=== PATIENT | female | born 1960 | race Two or more races ===

== ENCOUNTER → 2024-02-11 | Outpatient (CLI) | payer MEDICAID ==
[~2024-02-11] VITALS: Ht 167.6 cm; Wt 82.6 kg
[~2024-02-11] MED LIST: ADENOSINE 69 MG in GIVE UN-DILUTED 0 ML IV ONE; ADENOSINE 90 MG/30 ML INJ IV ONE
== END | disposition home or self-care (01) ==
LOC: Rad HDHVI 12:59
PROVIDERS: ATTEND Internal Medicine Cardiovascular Disease
DX: R00.2 Palpitations (principal); R42 Dizziness and giddiness; I10 Essential (primary) hypertension; R07.89 Other chest pain; E78.00 Pure hypercholesterolemia, unspecified; I49.9 Cardiac arrhythmia, unspecified; R55 Syncope and collapse; Z82.49 Family history of ischemic heart disease and other diseases of the circulatory system
CPT/HCPCS: 78452; 93005; 93306; 96374; 96375; A9500; J0153

== ENCOUNTER → 2024-04-01 | Outpatient (CLI) | payer MEDICAID ==
[~2024-04-01] MED LIST changes: -ADENOSINE 69 MG in GIVE UN-DILUTED 0 ML IV ONE; -ADENOSINE 90 MG/30 ML INJ IV ONE; +AMLO1TAB22 PO; +ATEN50TA PO; +BACL10TA PO; +BUDE1AER4 IN; +FEXO-42 PO; +POM; +RIVA20TA PO; +ROSU10TA16 PO; +TRIA37.586 PO
[2024-04-01 08:42] VITALS: BP 117/74; PULSE 55; RESP 18; O2SAT 98
[2024-04-01 08:50] VITALS: BP 117/74; PULSE 56; RESP 18; O2SAT 98
== END | disposition home or self-care (01) ==
LOC: Rad HDHVI 08:29
PROVIDERS: ATTEND Internal Medicine Cardiovascular Disease
DX: Z01.810 Encounter for preprocedural cardiovascular examination (principal); R00.2 Palpitations; I49.5 Sick sinus syndrome; I48.0 Paroxysmal atrial fibrillation; R94.31 Abnormal electrocardiogram [ECG] [EKG]
CPT/HCPCS: 71046; 93005; G0463

== ENCOUNTER 2024-04-03 07:57 | Day surgery (SDC) | payer MEDICAID ==
[2024-04-01 12:02] LABS: Basophils # (auto) 0.1 10 ^3/uL (0-0.2); Basophils % (auto) 0.7 % (0.0-2.0); Eosinophils # (auto) 0.2 10 ^3/uL (0-0.8); Eosinophils % (auto) 1.8 % (0.0-7.0); Hematocrit 44.2 % (36.0-46.0); Hemoglobin 15.2 g/dL (12.2-16.2); Lymphocytes # (auto) 4.3 10 ^3/uL (0.4-5.4); Lymphocytes % (auto) 42.6 % (10.0-50.0); Mean Corpuscular Hemoglobin 30.1 pg (28.0-32.0); Mean Corpuscular Hgb Conc. 34.3 g/dL (32.0-36.0); Mean Corpuscular Volume 87.7 fL (80.0-100.0); Monocytes # (auto) 0.6 10 ^3/uL (0-1.3); Monocytes % (auto) 5.6 % (0.0-12.0); Neutrophils % (auto) 49.3 % (37.0-80.0); Nucleated Red Blood Cells % 0.1 %; Platelet Count (auto) 318 10^3/uL (140-450); Red Blood Cells 5.04 10^6/uL (4.0-5.20); White Blood Cell 10.1 10^3/uL (4.4-10.8)
[2024-04-01 12:19] LABS: Partial Thromboplastin Time 25.6 SEC (24.5-34.5); Prothrombin Time 10.6 sec (9.3-11.8)
[2024-04-01 12:22] LABS: Chloride 104 mmol/L (98-107); Potassium 4.2 mmol/L (3.5-5.1); Sodium 140 mmol/L (136-145)
[2024-04-01 12:23] LABS: Anion Gap 8 (5-15); Calcium 10.6 mg/dL (8.7-10.4); Carbon Dioxide 28 mmol/L (20-31)
[2024-04-01 12:28] LABS: BUN/Creatinine Ratio 15.9 (10.0-20.0); Blood Urea Nitrogen 27 mg/dL (9-23); Glucose 121 mg/dL (74-106)
[~2024-04-03] VITALS: Ht 167.6 cm; Wt 84.8 kg
[2024-04-03] MEDS ORDERED: MIDAZOLAM HCL 2MG/2ML 2ml VIAL (1mg/ml) ONE (12:41)
[2024-04-03] MEDS ORDERED: VANCOMYCIN 1GM/250ML 200 ML IV ONE (12:41)
[2024-04-03] MEDS ORDERED: VANCOMYCIN HCL 1000 MG VL ONE (12:41)
[2024-04-03] MEDS ORDERED: fentaNYL CITRATE 100 MCG/2 ML VL ONE (12:41)
[2024-04-03] MEDS ORDERED: LIDOCAINE 2%HCL (LOCAL ANESTH.) INJ 20ML MDV ONE (12:41)
[2024-04-03] MEDS: HYDROcodone-ACET 5/325MG TAB PO ONE (15:44)
[2024-04-03] MEDS: HYDROcodone-ACET 5/325MG TAB ONE (15:46)
== END 2024-04-03 15:55 | disposition home or self-care (01) ==
LOC: CATH 07:57
PROVIDERS: ATTEND Internal Medicine Cardiovascular Disease
DX: I49.5 Sick sinus syndrome (principal); I44.30 Unspecified atrioventricular block; I10 Essential (primary) hypertension; R55 Syncope and collapse; Z79.899 Other long term (current) drug therapy; R07.89 Other chest pain; R06.09 Other forms of dyspnea; Z87.891 Personal history of nicotine dependence; Z88.2 Allergy status to sulfonamides; Z98.890 Other specified postprocedural states
CPT/HCPCS: 33208; 36415; 71045; 80048; 85025; 85610; 85730; 93005; C1785; C1898; J2250; J3010; J3370; 99152

== ENCOUNTER → 2024-04-09 | Outpatient (CLI) | payer MEDICAID | END | disposition home or self-care (01) | LOC: Rad HDHVI 14:07 | PROVIDERS: ATTEND Internal Medicine Cardiovascular Disease | DX: R06.02 Shortness of breath (principal) | CPT/HCPCS: 71046 ==

== ENCOUNTER 2024-05-20 15:45 | Inpatient (IN) | payer MEDICAID ==
[~2024-05-20] VITALS: Ht 167.6 cm; Wt 83.2 kg
[~2024-05-20 15:45] MED LIST changes: +ALBU108A5 IN; +AMLO1TAB23 PO; +POTA-228 PO; +TIOTCAP IN; +TRIA75TA11 PO
--- NOTE | 2024-05-20 15:55 | ED.PDOC ---
HPI Comments HPI: Poor Historian. 63-year-old female transferred from [facility] for atrial fibrillation and possible sepsis. 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 Patient had a pacemaker placed approximately 6-8 weeks ago and had it adjusted a week ago. Since the adjustment, patient has been complaining of generalized weakness and some palpitations. She went to the hospital today and was found with AFib with RVR. While she was at the facility there she received diltiazem IV and oral. She also received some fluids. Her BNP was elevated greater than 1000 and her lactic acid was slightly elevated at 2.3. Patient is on Xarelto. Patient was given Rocephin and blood cultures were obtained. Patient has some mild associated shortness of breath and some palpitations and some subjective fever per ER doctor at the outside facility. Patient also had a chest x-ray that was unremarkable and urinalysis was pending at the time of my discussion with the ER doctor at the outside facility. Troponin was negative. Magnesium was normal, COVID and influenza swabs were n egative. Earlier I discussed the case with Dr. 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 Vital signs on arrival to our ED: Vitals: temp: 98.3 RR: 18 02 sat: 96 % RA heart rate: 116 BP: 100/58 Past Medical History: Atrial fibrillation, gastritis, heart disease, hyperl ipidemia, hypertension, Past Surgical History: Pacemaker Medications include amlodipine, atenolol, baclofen, rosuvastatin, Spiriva, hydrochlorothiazide, Xarelto. REVIEW OF SYSTEMS: CONSTITUTIONAL: Denies acute: fever, diaphoresis, chills, HEAD: Denies acute: headache, photophobia Eyes: Denies acute: Double vision, vision loss, eye pain, eye discharge. EARS: Denies acute: tinnitus, hearing loss, ear discharge, ear pain, THROAT: Denies acute: sore throat, swelling, difficulty swallowing , pain with swallowing, change in voice. NECK: Denies acute: neck pain, neck swelling, stiff neck. HEART: Denies acute : chest pain, LUNGS: Denies acute: wheezing, cough, hemoptysis ABDOMEN: Denies acute: abdominal pain, Nausea, Vomiting, diarrhea, melena , hematemesis, hematochezia SKIN: Denies acute: rash, redness, lesions, itchiness. EXTREMITIES: Denies acute: calf pain, numbness, tingling, weakness, denies pain in extremity. Denies acute: Low back pain. Neuro: Denies acute: focal neurological deficit, motor or sensory focal neurological deficit, tremors, seizure like activity, confusion, dizziness, change in mental status, loss of bowel or bladder function, cauda equina like symptoms. : Denies acute: dysuria, hematuria, flank pain, increase in urinary frequency. PSYCH: Denies acute: hallucination, suicidal ideation, homicidal ideation. FEMALE: Denies acute: abnormal vaginal bleeding, foul odor, unusual discharge. PHYSICAL EXAM: General: no acute distress, awake and alert. Head: normocephalic, atraumatic. Neck: supple, trachea is midline, no swelling. Throat: Normal phonation. Eyes:, no erythema, no purulent discharge, no proptosis, no icterus. Heart: regular rate, regular rhythm, no significant murmur appreciated. Lungs: no apparent respiratory distress, Able to speak in full sentences. No wheezing, no rhonchi, no crackles. No stridors Clear to auscultation bilaterally. Abdomen: non tender to palpation, non distended, soft, no guarding, no rebound, + bowel sounds. Neuro: Awake, Alert, oriented to name, self, situation, follows commands GCS=15. Speech is normal. Skin: no petechia, no purpura, no cyanosis, non-pale, not jaundice. Lower extremities: --no - Pitting edema no deformity, no focal swelling, no calf TTP. Makes eye contact. moves all four extremities. Face: no apparent facial droop. Time Seen by MD: 15:46 Reviewed Notes: Nurses Notes, Allergies Allergies: Coded Allergies: Sulfa Antibiotics (Verified Allergy, Unknown, 02/11/24) Home Meds Reported Medications Rivaroxaban (XARELTO) 20 Mg Tab, 1 TAB PO DAILY for A.FIB, #30 TAB 11 Refills 04/01/24 Hydrochlorothiazide W/Triamter (Triamterene/Hydrochloroth) 1 Cap Cap, 1 CAP PO DAILY for EDEMA, CAP 04/01/24 Baclofen (Baclofen) 10 Mg Tab, 10 MG PO DAILY PRN for FOR MUSCLE SPASM, MG 04/01/24 Patients Own Medication (PATIENTS OWN MEDICATION) ., PRN for ALBUTEROL PTS OWN MED-OBTAIN FROM PT AND SEND TO RX DRUG: FREQ: RX# EXP: DATE DISP: TECH: RP: 04/01/24 Patients Own Medication (PATIENTS OWN MEDICATION) ., DAILY for ALLER-RITA PTS OWN MED-OBTAIN FROM PT AND SEND TO RX DRUG: FREQ: RX# EXP: DATE DISP: TECH: RP: 04/01/24 Patients Own Medication (PATIENTS OWN MEDICATION) ., DAILY for SPIRIVA/COPD PTS OWN MED-OBTAIN FROM PT AND SEND TO RX DRUG: FREQ: RX# EXP: DATE DISP: TECH: RP: 04/01/24 Budesonide-Formoterol Fumarate (Budesonide/Formoterol Fum 160-4.5 Mcg/Act) 1 Aer Aer, 1 AER IN DAILY for COPD, AER 04/01/24 Fexofenadine Hydrochloride (EDWARD ALLERGY) 180 Mg Tab, 1 TAB PO DAILY for ALLERGIES, #30 TAB 2 Refills 04/01/24 Rosuvastatin Calcium (Crestor) 10 Mg Tab, 1 TAB PO DAILY for HIGH CHOLESTEROL, #30 TAB 5 Refills 04/01/24 Amlodipine Besylate (Amlodipine Besylate) 5 Mg Tab, 10 MG PO DAILY for HTN, MG 04/01/24 Atenolol (Atenolol) 50 Mg Tab, 50 MG PO DAILY for ARRHYTHMIA, MG 04/01/24 Information Source: Patient, Emergency Med Personnel Mode of Arrival: EMS Brought in by: EMS Was a procedure done? Was a procedure done?: No CP Differential Dx Differential Diagnosis: A-fib, A-Flutter, Angina, Anxiety / Panic Attack, Atrial Dysrhythmia, AV Block 1st Degree, AV Block 2nd Degree, AV Block 3rd Degree, Digoxin Toxicity, Electrolyte Disorder, Heart Failure, Hyperthyroidism, Hyperventilation, Hypoxia, MAT, DE, PAC's, Pacemaker Malfunction, PSVT, Pulmonary Embolus, PVC's, Renal Failure, Sinus Tachycardia, Torsades De Pointes, Ventricular Dysrhythmia, V-Fib, V-Tach, WPW, Other Differential Diagnosis: Other (Generalized weakness Includes but not limited to thyroid disease, encephalopathy, electrolyte abnormality, sepsis, infection, intracranial pathology, drug adverse effects, arrhythmia, kidney insufficiency, ACS, CVA, malignancy, anemia) X-Ray, Labs, Meds, VS Vital Signs Date Time Temp Pulse Resp B/P (MAP) Pulse Ox O2 Delivery O2 Flow Rate FiO2 05/20/24 20:00 92/39 05/20/24 20:00 95 05/20/24 19:39 105 24 97 Room Air* 0 21 05/20/24 19:39 98.2 105 24 108/57 (74) 97 98.2 05/20/24 19:14 123/74 05/20/24 18:00 93 20 116/51 (72) 94 05/20/24 16:08 85 21 96 Room Air* 0 21 05/20/24 16:08 98.3 85 21 115/54 (74) 96 98.3 05/20/24 16:03 89 05/20/24 15:47 114 05/20/24 15:47 114 05/20/24 15:45 98.3 116 18 100/58 (72) 96 Lab Test 05/20/24 19:17 05/20/24 17:40 05/20/24 16:15 Range/Units Troponin I High Sensitivity 7 5 6 </=34 ng/L White Blood Count 8.6 4.4-10.8 10^3/uL Red Blood Count 4.24 4.0-5.20 10^6/uL Hemoglobin 12.7 12.2-16.2 g/dL Hematocrit 37.7 36.0-46.0 % Mean Corpuscular Volume 88.7 80.0-100.0 fL Mean Corpuscular Hemoglobin 29.9 28.0-32.0 pg Mean Corpuscular Hemoglobin Concent 33.7 32.0-36.0 g/dL Red Cell Distribution Width 14.3 11.8-14.3 % Platelet Count 289 140-450 10^3/uL Mean Platelet Volume 7.5 6.9-10.8 fL Neutrophils (%) (Auto) 55.6 37.0-80.0 % Lymphocytes (%) (Auto) 34.4 10.0-50.0 % Monocytes (%) (Auto) 8.9 0.0-12.0 % Eosinophils (%) (Auto) 0.5 0.0-7.0 % Basophils (%) (Auto) 0.6 0.0-2.0 % Neutrophils # (Auto) 4.8 1.6-8.6 10 ^3/uL Lymphocytes # (Auto) 3.0 0.4-5.4 10 ^3/uL Monocytes # (Auto) 0.8 0-1.3 10 ^3/uL Eosinophils # (Auto) 0 0-0.8 10 ^3/uL Basophils # (Auto) 0.1 0-0.2 10 ^3/uL Nucleated Red Blood Cells 0.1 % Sodium Level 136 136-145 mmol/L Potassium Level 3.6 3.5-5.1 mmol/L Chloride Level 103 98-107 mmol/L Carbon Dioxide Level 23 20-31 mmol/L Anion Gap 10 5-15 Blood Urea Nitrogen 22 9-23 mg/dL Creatinine 1.19 H 0.550-1.02 mg/dL Glomerular Filtration Rate Calc 51 >90 mL/min BUN/Creatinine Ratio 18.5 10.0-20.0 Serum Glucose 114 H 74-106 mg/dL Lactic Acid Level 1.4 0.4-2.0 mmol/L Calcium Level 9.3 8.7-10.4 mg/dL Total Bilirubin 0.7 0.2-1.0 mg/dL Aspartate Amino Transferase (AST) 14 13-40 U/L Alanine Aminotransferase (ALT) 13 7-40 U/L Alkaline Phosphatase 54 46-116 U/L B-Type Natriuretic Peptide 132.13 0-100 pg/mL Total Protein 6.7 5.7-8.2 g/dL Albumin 4.1 3.2-4.8 g/dL Current Medications Medications (Trade) Dose Ordered Sig/Kitty Route Start Time Stop Time Status Last Admin Diltiazem HCl 125 ml @ 5 mls/hr Q24H ONCE IV 05/20/24 19:00 05/21/24 18:59 05/20/24 19:14 Time of 1ST Reevaluation: 21:33 Reevaluation 1ST: Improved Patient Education/Counseling: Diagnosis, Treatment Family Education/Counseling: No Family Present Comments Patient presented with the above HPI.---atrial fibrillation with RVR/generalized weakness---workup was initiated. patient was found with the above mentioned diagnosis. Patient was given: Diltiazem drip Patient ED course and VS have been stabilized. Patient has been reassessed in the ED and remained in a stable condition. Pertinent incidental findings were discussed with the patient and/or family. Patient/family voices understanding and is agreeable with plan. Patient has been observed in the ED adequate length of time to insure improvement/stability. patient was admitted to the medicine team for further evaluation and treatment of their presentation. All the reports of any imaging studies that were ordered by myself were reviewed by myself. Departure 1 Departure Time of Disposition: 15:57 Impression: Primary Impression: Atrial fibrillation with RVR Disposition: ADMITTED INPATIENT Admit to: Tele Condition: Guarded Discharged With: Self Critical Care Note Critical Care Time?: Yes (45 min-critical care time only) Heart Score Heart Score: Heart Score Response (Comments) Value History Slightly Suspicious 0 EKG Normal 0 Age 45-64 1 Risk Factors >3 or Hx ASHD 2 Troponin Normal limit 0 Total 3 I personally scribed for SWEETIE TRUONG DO ([email or web address]) on 05/20/24 at 16:19. Electronically submitted by Becca Hernandez ([email or web address]). SWEETIE TRUONG DO May 20, 2024 15:55
[2024-05-20 16:08] VITALS: PULSE 85; RESP 21; O2SAT 96
--- NOTE | 2024-05-20 16:21 | DVH ---
CHEST RADIOGRAPH Indication: weak Technique: Single frontal view of the chest was obtained Comparison: XY CHEST PORTABLE on DOS: 04/03/24 FINDINGS: Lines and Tubes: None. Left-sided approach dual lead pacemaker terminating within right atrium and r ight ventricle. Lungs: No focal consolidation. Pleura: No effusion. No pneumothorax. Cardiomediastinal contours: Mild cardiomegaly Bones: No acute osseous abnormality. IMPRESSION: No acute cardiopulmonary disease. Mild cardiomegaly.
[2024-05-20 16:33] LABS: Basophils # (auto) 0.1 10 ^3/uL (0-0.2); Basophils % (auto) 0.6 % (0.0-2.0); Eosinophils # (auto) 0 10 ^3/uL (0-0.8); Eosinophils % (auto) 0.5 % (0.0-7.0); Hematocrit 37.7 % (36.0-46.0); Hemoglobin 12.7 g/dL (12.2-16.2); Lymphocytes % (auto) 34.4 % (10.0-50.0); Mean Corpuscular Hemoglobin 29.9 pg (28.0-32.0); Mean Corpuscular Hgb Conc. 33.7 g/dL (32.0-36.0); Mean Corpuscular Volume 88.7 fL (80.0-100.0); Monocytes # (auto) 0.8 10 ^3/uL (0-1.3); Monocytes % (auto) 8.9 % (0.0-12.0); Neutrophils # (auto) 4.8 10 ^3/uL (1.6-8.6); Neutrophils % (auto) 55.6 % (37.0-80.0); Nucleated Red Blood Cells % 0.1 %; Platelet Count (auto) 289 10^3/uL (140-450); Red Blood Cells 4.24 10^6/uL (4.0-5.20); Red Cell Distribution Width 14.3 % (11.8-14.3); White Blood Cell 8.6 10^3/uL (4.4-10.8)
[2024-05-20 16:55] LABS: Alanine Aminotransferase 13 U/L (7-40); Albumin 4.1 g/dL (3.2-4.8); Alkaline Phosphatase 54 U/L (46-116); Anion Gap 10 (5-15); Aspartate Aminotransferase 14 U/L (13-40); BUN/Creatinine Ratio 18.5 (10.0-20.0); Bilirubin, Total 0.7 mg/dL (0.2-1.0); Blood Urea Nitrogen 22 mg/dL (9-23); Calcium 9.3 mg/dL (8.7-10.4); Carbon Dioxide 23 mmol/L (20-31); Chloride 103 mmol/L (98-107); Glucose 114 mg/dL (74-106); Potassium 3.6 mmol/L (3.5-5.1); Sodium 136 mmol/L (136-145); Total Protein 6.7 g/dL (5.7-8.2)
[2024-05-20] MEDS: dilTIAZem 125mg/125ml BAG KIT 125 ML IV ONE (19:14)
[2024-05-20 19:39] VITALS: PULSE 105; RESP 24; O2SAT 97
[2024-05-20] MEDS ORDERED: ACETAMINOPHEN 325 MG TAB PO PRN (21:00)
[2024-05-20] MEDS ORDERED: NITROGLYCERIN 0.4 MG SL TAB SL PRN (21:00)
[2024-05-20] MEDS ORDERED: MORPHINE SULFATE INJ 2 MG/ml SYRG IV PRN ×2 (21:00)
[2024-05-20] MEDS: ENOXAPARIN SOD 40 MG/0.4 ML SYRINGE SC SCH (21:20)
[2024-05-20] MEDS: SODIUM CHLORIDE 0.9% 1,000 ML IV SCH (21:20)
[2024-05-20] MEDS: MELATONIN 5 MG TAB PO ONE (22:00)
[2024-05-21] VITALS (8 sets, daily range): BP systolic 96–138; BP diastolic 36–75; PULSE 62–109; RESP 15–21; TEMP 98.7; O2SAT 93–97
[2024-05-21] MEDS: DIGOXIN (250MCG/ML) 2 ML AMPULE IV ONE (00:39)
--- NOTE | 2024-05-21 01:56 | DVHHPRES ---
History of Present Illness Resident Creating Document: CHITRA FIGUEROA RESIDENT Reason for Visit: Generalized weakness, palpitation and insomnia for 8 days. History of Present Illness 63-year-old female patient with past medical history of hypertension, hyperlipidemia, atrial fibrillation with rapid ventricular response, sick sinus syndrome status post dual-chamber pacemaker implantation 2 months ago, and COPD with nicotine dependency presented with generalized weakness palpitations and insomnia over the last 8 days. The patient reports severe fatigue that has left her mostly bed-bound, unable to ambulate or perform daily activities. She has been eating minimal amounts, limited to small amounts of fruit. The palpitations are intermittent described as an regular and rapid heartbeat, without associated chest pain dizziness or syncope. She denies fever recent weight loss, or other constitutional symptoms. Insomnia persists despite the use of melatonin. She was recently started on diltiazem and ceftriaxone during this admission, diltiazem was discontinued and digoxin 0.1 mg IV was initiated to control her atrial fibrillation. Past Medical History Atrial fibrillation rapid ventricular response Sick sinus syndrome status post dual-chamber pacemaker implanted 2 months ago Hypertension Hyperlipidemia COPD Nicotine dependency Past Surgical History Apple tunnel surgery Cholecystectomy Dual-chamber pacemaker implantation Family History: None Smoke: No ALCOHOL: none Drugs: None Lives: Alone Review of Systems Review of Systems Constitutional: Weakness, frailty. Denies fever weight loss Eyes: No: Pain, Vision change, Conjunctivae inflammation, Eyelid inflammation, Other, Redness ENT: No: Ear pain, Ear discharge, Nose pain, Nose discharge, Nose congestion, Mouth pain, Mouth swelling, Throat pain, Throat swelling, Other Respiratory: Cough present, Shortness of breath, improving No Wheezing, Hemoptysis, Pleuritic Pain, Sputum, Wheezing, Other Cardiovascular: Palpitation, denies chest pain edema cyanosis or claudication. Gastrointestinal: No: Nausea, Vomiting, Abdominal Pain, Diarrhea, Constipation, Melena, Hematochezia, Other Musculoskeletal: No: other, neck pain, shoulder pain, arm pain, back pain, hand pain, leg pain, foot pain Neurological: Insomnia, no reported depression or anxiety Allergies: Coded Allergies: Sulfa Antibiotics (Verified Allergy, Unknown, 02/11/24) Medications Current Medications Medications Dose Ordered Sig/Kitty Route Start Time Stop Time Status Last Admin Dose Admin Sodium Chloride 1,000 ml @ 60 mls/hr [id number] IV 05/20/24 21:00 05/20/24 21:20 60 MLS/HR Acetaminophen 650 mg Q6HP PRN PO 05/20/24 21:00 Morphine Sulfate 2 mg Q4HPRN PRN IV 05/20/24 21:00 Enoxaparin Sodium 40 mg DAILY@2100 SC 05/20/24 21:00 05/20/24 21:20 40 MG Nitroglycerin 0.4 mg Q5MINP PRN SL 05/20/24 21:00 Morphine Sulfate 2 mg Q30M PRN IV 05/20/24 21:00 Digoxin 100 mcg DAILY IV 05/21/24 10:00 Exam Vital Signs Vital Signs Date Time Temp Pulse Resp B/P (MAP) Pulse Ox O2 Delivery O2 Flow Rate FiO2 05/21/24 00:39 89 05/20/24 23:00 100/52 05/20/24 22:30 20 91 05/20/24 19:39 Room Air* 0 21 05/20/24 19:39 98.2 98.2 Exam Examination General Appearance: Alert, Oriented X3, Cooperative, frail but well nourished Vital signs: Heart rate 110-150 beats per minute, irregularly irregular BP: 108/57 mmHg low-normal Afebrile Respiratory: Clear to auscultation, Normal air movement Cardiovascular: Irregularly irregular rhythm (atrial fibrillation), no murmurs no rubs or gallops, capillary refill less than 2 seconds Abdominal: Normal bowel sounds Extremities: No cyanosis, No edema, Normal pulses, No tenderness/swelling Skin: No rashes, No breakdown Labs/Xrays Labs Test 05/20/24 19:17 05/20/24 16:15 Range/Units Troponin I High Sensitivity 7 </=34 ng/L White Blood Count 8.6 4.4-10.8 10^3/uL Red Blood Count 4.24 4.0-5.20 10^6/uL Hemoglobin 12.7 12.2-16.2 g/dL Hematocrit 37.7 36.0-46.0 % Mean Corpuscular Volume 88.7 80.0-100.0 fL Mean Corpuscular Hemoglobin 29.9 28.0-32.0 pg Mean Corpuscular Hemoglobin Concent 33.7 32.0-36.0 g/dL Red Cell Distribution Width 14.3 11.8-14.3 % Platelet Count 289 140-450 10^3/uL Mean Platelet Volume 7.5 6.9-10.8 fL Neutrophils (%) (Auto) 55.6 37.0-80.0 % Lymphocytes (%) (Auto) 34.4 10.0-50.0 % Monocytes (%) (Auto) 8.9 0.0-12.0 % Eosinophils (%) (Auto) 0.5 0.0-7.0 % Basophils (%) (Auto) 0.6 0.0-2.0 % Neutrophils # (Auto) 4.8 1.6-8.6 10 ^3/uL Lymphocytes # (Auto) 3.0 0.4-5.4 10 ^3/uL Monocytes # (Auto) 0.8 0-1.3 10 ^3/uL Eosinophils # (Auto) 0 0-0.8 10 ^3/uL Basophils # (Auto) 0.1 0-0.2 10 ^3/uL Nucleated Red Blood Cells 0.1 % Sodium Level 136 136-145 mmol/L Potassium Level 3.6 3.5-5.1 mmol/L Chloride Level 103 98-107 mmol/L Carbon Dioxide Level 23 20-31 mmol/L Anion Gap 10 5-15 Blood Urea Nitrogen 22 9-23 mg/dL Creatinine 1.19 H 0.550-1.02 mg/dL Glomerular Filtration Rate Calc 51 >90 mL/min BUN/Creatinine Ratio 18.5 10.0-20.0 Serum Glucose 114 H 74-106 mg/dL Lactic Acid Level 1.4 0.4-2.0 mmol/L Calcium Level 9.3 8.7-10.4 mg/dL Total Bilirubin 0.7 0.2-1.0 mg/dL Aspartate Amino Transferase (AST) 14 13-40 U/L Alanine Aminotransferase (ALT) 13 7-40 U/L Alkaline Phosphatase 54 46-116 U/L B-Type Natriuretic Peptide 132.13 0-100 pg/mL Total Protein 6.7 5.7-8.2 g/dL Albumin 4.1 3.2-4.8 g/dL Assessment/Plan Assessment/Plan Atrial Fibrillation with rapid ventricular response, CHADSVASC 2 points HASBLED 1 POINT -diltiazem was discontinued -Digoxin 0.1 mg IV -check digoxin level after 6 hours to ensure therapeutic range -Consider beta-kory therapy -consider DOAC if not contraindication to prevent thromboembolic event -consider pacemaker interrogation Generalized weakness -physical therapy evaluation for strength and mobility improvement History of Nicotine dependency, quit 1 year ago Encouraged continue with smoking cessation Mild hypotension -monitor Sick sinus syndrome status post pacemaker implantation -consider pacemaker interrogation -follow-up with ultrasonographer Insomnia -melatonin Disposition: Admit to telemetry for monitoring of heart rate and rhythm Case discussed with Dr. Paz Discharge planning discussed with the patient for 38 minutes Code status: Full code Plan discussed with: Patient My Orders Orders - CHITRA FIGUEROA RESIDENT Procedure Category Date Status Time Admit ADMIT 05/20/24 Transmitted 20:46 Allergies MARICEL 05/20/24 In Process 20:46 Code Status CODE 05/20/24 Transmitted 20:46 2 Gm Sodium Diet DIET 05/21/24 Transmitted Breakfast Sodium Chloride 0.9% PHA 05/20/24 In Process 21:00 Oxygen Per Hour RT 05/20/24 Transmitted 20:46 Complete Blood Count LAB 05/21/24 Logged 04:00 Comprehensive LAB 05/21/24 Logged Metabolic Panel 04:00 Cardiac DIET 05/21/24 Transmitted Diet-2gna,Lofat,Lochol Breakfast Echo 2d Mode Cardiac US 05/20/24 Logged DOP 20:46 Acetaminophen Tablet PHA 05/20/24 In Process (Tylenol Tablet) 21:00 Morphine Sulfate PHA 05/20/24 In Process Injection 21:00 Enoxaparin Sodium PHA 05/20/24 In Process (Lovenox) 21:00 Nitroglycerin PHA 05/20/24 In Process Sublingual (Ntrostat 21:00 Morphine Sulfate PHA 05/20/24 In Process Injection 21:00 Oxygen By Nasal RT 05/20/24 Transmitted Cannula 20:46 Stat Ekg For Chest [facility] 05/20/24 In Process Pain 20:46 Notify Md Of Changes [facility] 05/20/24 In Process From Base 20:46 Lining [place] For MARICEL 05/20/24 In Process 24 Hours 20:46 Emergency Dysrhythmia MARICEL 05/20/24 In Process Protocol 20:46 Rhythm Strips Once [facility] 05/20/24 In Process Every Shift 20:46 Digoxin Injection PHA 05/21/24 In Process (Lanoxin Injection) 10:00 Date of Service: May 20, 2024 Billing Provider: HIEN PAZ MD Common Visit Codes: 45000-SXPYMLJ INP/OBS CARE (HIGH) Secondary Visit Codes: 66150-MLQMRHKF CARE PLAN 30 MINUTES CHITRA FIGUEROA May 21, 2024 01:56 HIEN PAZ MD May 21, 2024 09:12
[2024-05-21] MEDS: MELATONIN 5 MG TAB PO ONE (02:00)
[2024-05-21 03:58] LABS: Amphetamine Screen, Urine Neg (NEGATIVE); Barbiturate Scree,Urine Neg (NEGATIVE); Benzodiazephine Screen, Urine Neg (NEGATIVE); Cocaine Screen, Urine Neg (NEGATIVE)
[2024-05-21 03:59] LABS: Cannabinoid Screen, Urine Neg (NEGATIVE); Opiate Scree,Urine Neg (NEGATIVE); Phencyclidine Screen, Urine Neg (NEGATIVE)
[2024-05-21 04:53] LABS: Basophils # (auto) 0 10 ^3/uL (0-0.2); Basophils % (auto) 0.3 % (0.0-2.0); Eosinophils # (auto) 0.1 10 ^3/uL (0-0.8); Eosinophils % (auto) 1.7 % (0.0-7.0); Hematocrit 33.4 % (36.0-46.0); Hemoglobin 11.7 g/dL (12.2-16.2); Lymphocytes # (auto) 3.2 10 ^3/uL (0.4-5.4); Lymphocytes % (auto) 40.2 % (10.0-50.0); Mean Corpuscular Hemoglobin 30.3 pg (28.0-32.0); Mean Corpuscular Hgb Conc. 34.9 g/dL (32.0-36.0); Mean Corpuscular Volume 86.9 fL (80.0-100.0); Monocytes # (auto) 0.5 10 ^3/uL (0-1.3); Monocytes % (auto) 5.9 % (0.0-12.0); Neutrophils # (auto) 4.2 10 ^3/uL (1.6-8.6); Neutrophils % (auto) 51.9 % (37.0-80.0); Platelet Count (auto) 255 10^3/uL (140-450); Red Blood Cells 3.84 10^6/uL (4.0-5.20); White Blood Cell 8.1 10^3/uL (4.4-10.8)
[2024-05-21 05:07] LABS: Alanine Aminotransferase 12 U/L (7-40); Albumin 3.9 g/dL (3.2-4.8); Alkaline Phosphatase 50 U/L (46-116); Anion Gap 10 (5-15); Aspartate Aminotransferase 14 U/L (13-40); BUN/Creatinine Ratio 19.8 (10.0-20.0); Bilirubin, Total 0.6 mg/dL (0.2-1.0); Blood Urea Nitrogen 22 mg/dL (9-23); Calcium 9.2 mg/dL (8.7-10.4); Carbon Dioxide 24 mmol/L (20-31); Chloride 106 mmol/L (98-107); Glucose 99 mg/dL (74-106); Potassium 3.2 mmol/L (3.5-5.1); Sodium 140 mmol/L (136-145)
[2024-05-21 05:08] LABS: Total Protein 6.3 g/dL (5.7-8.2)
[2024-05-21 05:16] LABS: CRP High Sensitivity 7.81 mg/dL (<1.0)
[2024-05-21] MEDS ORDERED: BACLOFEN 10 MG TAB PO PRN (05:30)
[2024-05-21] MEDS: FEXOFENADINE HCL 60 MG TAB PO ONE (05:41)
[2024-05-21] MEDS: ATORVASTATIN 20 MG TAB PO ONE (05:41)
[2024-05-21 05:46] LABS: Erythrocyte Sedimentation Rate 85 mm/hr (0-20)
[2024-05-21] MEDS: LEVALBUTEROL HCL 1.25 MG/3 ML NEB NEB SCH (05:49)
[2024-05-21] MEDS: IPRATROPIUM BROM 0.5 MG/2.5ML INH SOL NEB SCH (05:49)
--- NOTE | 2024-05-21 07:12 | DVH ---
EXAM: CT HEAD WITHOUT CONTRAST INDICATION: rule out stroke. TECHNIQUE: CT of the head without intravenous contrast. Coronal and sagittal reformatted images are submitted. Radiation Dose : 1. Head: CT Dose: CTDI volume is 54.14 mGy. Dose-length product is 1067.03 mGy*cm The dose indicators for CT are the volume Computed Tomography (CT) Dose Index (CTDIvol) and the Dose Length Product (DLP), and are measured in units of mGy and mGy-cm, respectively. These indicators are not patient dose, but values generated from the CT scanner acquisition factors. The report includes radiation exposure data for exposures received during this examination. All CT scans at this medical facility are performed using dose modulation techniques as appropriate to a performed exam including the following: Automated exposure control was utilized; adjustment of the MA and/or KV according to patient size; and use of iterative reconstruction technique. COMPARISON: None FINDINGS: There is no evidence of acute intracranial hemorrhage, extra-axial collection, mass effect, midline s hift, herniation or hydrocephalus. The ventricles, sulci and cisterns are age appropriate. The menon-white differentiation is intact. The visualized paranasal sinuses and mastoid air cells are clear. No depressed calvarial fracture. The surrounding soft tissues are unremarkable. IMPRESSION: 1. No evidence of acute intracranial abnormality.
--- NOTE | 2024-05-21 08:10 | DVHPN2 ---
Progress Note - Dictate Date Seen: May 21, 2024 Medical Necessity Reason Pt with a Central, PICC or Fol: No Subjective PT WITH COPD TOBACCO USE NOW WITH SSS S/P PPI HX OF AFIB WITH RVR HYPOTENSION vital signs Vital Sign Date Time Temp Pulse Resp B/P (MAP) Pulse Ox O2 Delivery O2 Flow Rate FiO2 05/21/24 07:24 96 15 96/36 97 1.0 24 05/21/24 05:49 Nasal Cannula* 05/20/24 19:39 98.2 98.2 Total Intake and Output 05/20/24 05/20/24 05/21/24 15:00 23:00 07:00 Intake Total 140 ml 420 ml Balance 140 ml 420 ml medications Current Medications Medications Dose Ordered Sig/Kitty Route Start Time Stop Time Status Last Admin Dose Admin Sodium Chloride 1,000 ml @ 60 mls/hr [id number] IV 05/20/24 21:00 05/20/24 21:20 60 MLS/HR Acetaminophen 650 mg Q6HP PRN PO 05/20/24 21:00 Morphine Sulfate 2 mg Q4HPRN PRN IV 05/20/24 21:00 Nitroglycerin 0.4 mg Q5MINP PRN SL 05/20/24 21:00 Morphine Sulfate 2 mg Q30M PRN IV 05/20/24 21:00 Aspirin 81 mg DAILY PO 05/21/24 10:00 Baclofen 10 mg DAILY PRN PO 05/21/24 05:30 Ipratropium [place] 0.5 mg Q6HWA NEB 05/21/24 06:00 05/21/24 05:49 0.5 MG Levalbuterol HCl 0.625 mg Q6HR NEB 05/21/24 06:00 05/21/24 05:49 0.625 MG Rivaroxaban 20 mg QPM PO 05/21/24 18:00 UNV Metoprolol Succinate 25 mg DAILY PO 05/21/24 10:00 UNV laboratory and microbiology Laboratory Tests 05/21/24 04:04 Test 05/21/24 04:04 Range/Units Serum Glucose 99 74-106 mg/dL Problem List COPD TOBACCO USE NOW WITH SSS S/P PPI HX OF AFIB WITH RVR HYPOTENSION Assessment/Plan CONT TOPROL DIG 0.125 PO QD DC TOBACCO USE Plan discussed with: Patient STEVO RAMOS MD May 21, 2024 08:10
[2024-05-21] MEDS: POTASSIUM EFFERVESENT TAB 25 MEQ PO ONE (09:20)
[2024-05-21] MEDS: METOPROLOL SUCCINATE XL 50 MG TAB PO SCH (10:00)
[2024-05-21] MEDS ORDERED: DIGOXIN (250MCG/ML) 2 ML AMPULE IV SCH (10:00)
[2024-05-21] MEDS: ASPirin 81 mg TAB PO SCH (10:35)
[2024-05-21] MEDS: DIGOXIN 0.125 MG TAB PO SCH (10:35)
--- NOTE | 2024-05-21 14:24 | ECG ---
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
--- NOTE | 2024-05-21 15:27 | DVHPNRES ---
Progress Note Date Seen: May 21, 2024 Resident Creating Document: SUZANNA HUERTA RESIDENT Medical Necessity Reason Pt with a Central, PICC or Fol: No Subjective Review of Systems AUSTINVICKBriseida a 62 years old female with a PMH of HTN, HLD, AFib with RVR, sinus sick syndrome status post dual-chamber pacemaker and COPD presented to the ED with the chief complaints of palpitations, generalized weakness for past 8 days. Patient reported on April 03, Dr. Quintero implanted pacemaker, and May 13 the mid some adjustments since then patient has been feeling all these symptoms, feels very weak, hard feels like racing, unable to eat due to lack of appetite and not interested in any thing and unable to perform daily activities mostly staying all the day on the bed due to the weakness which brought her to visit ED. The palpitations are intermittent described as an regular and rapid heartbeat, without associated chest pain dizziness or syncope. She denies fever recent weight loss, or other constitutional symptoms. Insomnia persists despite the use of melatonin. patient does report few episodes of fever but denies abdominal pain, chest pain, diaphoresis and other associated symptoms. PMH: HTN, HLD, AFib with RVR, sinus sick syndrome status post dual-chamber pacemaker and COPD PSH: Dual-chamber replacement on May 13t by Dr quintero, carpal tunnel release surgery, cholecystectomy Family history: Reviewed, noncontributory Social history: Lives alone with a roommate. Denies smoking, alcohol and other drug abuse Allergies: : Sulfa allergy Patient seen and examined at the bedside. Patient reported improvement since admission. Continuously monitoring and telemetry unit, patient found to have AFib with RVR, consulted Dr. Quintero, evaluated the patient and advised to continue metoprolol and digoxin 0.125 p.o. q.d. and ordered Biotronik interrogation. Objective vital signs Vital Sign Date Time Temp Pulse Resp B/P (MAP) Pulse Ox O2 Delivery O2 Flow Rate FiO2 05/21/24 12:06 70 16 95 05/21/24 12:00 Room Air 0.0 05/21/24 12:00 21 05/21/24 07:24 96/36 05/20/24 19:39 98.2 98.2 Total Intake and Output 05/20/24 05/20/24 05/21/24 15:00 23:00 07:00 Intake Total 140 ml 420 ml Balance 140 ml 420 ml medications Current Medications Medications Dose Ordered Sig/Kitty Route Start Time Stop Time Status Last Admin Dose Admin Sodium Chloride 1,000 ml @ 60 mls/hr [id number] IV 05/20/24 21:00 05/21/24 14:01 60 MLS/HR Acetaminophen 650 mg Q6HP PRN PO 05/20/24 21:00 Morphine Sulfate 2 mg Q4HPRN PRN IV 05/20/24 21:00 Nitroglycerin 0.4 mg Q5MINP PRN SL 05/20/24 21:00 Morphine Sulfate 2 mg Q30M PRN IV 05/20/24 21:00 Aspirin 81 mg DAILY PO 05/21/24 10:00 05/21/24 10:35 81 MG Baclofen 10 mg DAILY PRN PO 05/21/24 05:30 Ipratropium [place] 0.5 mg Q6HWA NEB 05/21/24 06:00 05/21/24 12:00 0.5 MG Levalbuterol HCl 0.625 mg Q6HR NEB 05/21/24 06:00 05/21/24 12:00 0.625 MG Rivaroxaban 20 mg QPM PO 05/21/24 18:00 Metoprolol Succinate 25 mg DAILY PO 05/21/24 10:00 Digoxin 0.125 mg DAILY PO 05/21/24 10:00 05/21/24 10:35 0.125 MG Examination Pt is lying on bed General Appearance: Alert, Oriented X3, Cooperative, Not in acute distress HEENT: Atraumatic, Mucous membranes moist/pink Respiratory: Clear to auscultation, Normal air movement, No added sounds Cardiovascular: irregularly irregular pulse, Normal S1, Normal S2, No murmurs Abdominal: Active bowel sounds, Soft, no distention, no tenderness Extremities: No edema, Normal pulses, No tenderness/swelling Skin: No Significant rash, except past surgical scars Neuro: Normal speech, sensorimotor deficits none Psych/Mental Status: Mental status NL, Mood NL Nurse was there as sharperone during examination laboratory and microbiology Laboratory Tests 05/21/24 04:04 Test 05/21/24 04:04 Range/Units Serum Glucose 99 74-106 mg/dL Labs and/or images reviewed: Labs reviewed by me, Image(s) reviewed by me Problem List/Assessment/Plan Problem List/Assessment/Plan # Atrial Fibrillation with rapid ventricular response secondary hypercoagulable state - monitor on telemetry unit -CHADSVASC 2 points HASBLED 1 POINT -diltiazem was discontinued -Digoxin 0.1 mg IV given -check digoxin level after 6 hours to ensure therapeutic range -currently on metoprolol 25 mg -consider pacemaker interrogation -Dr. Quintero evaluated the patient and advised to continue metoprolol and digoxin 0.125 p.o. q.d. - continue home meds Xarelto # Generalized weakness -physical therapy evaluation for strength and mobility improvement - head CT showed with no acute abnormalities # rule out OTTO -monitor lab for now # History of Nicotine dependency, quit 1 year ago Encouraged continue with smoking cessation # Mild hypotension -monitor # Sick sinus syndrome status post pacemaker implantation -consider pacemaker interrogation -follow-up with tafe teacher # Insomnia -melatonin On Xarelto No Protonix needed Reconciled home meds Cardiac diet Goals of care discussed with the patient for more than 27 minutes: Full code status Case management discussed with the doctor, patient and nurse Plan discussed with: Patient My Orders My Orders Orders - SUZANNA HUERTA RESIDENT Procedure Category Date Status Time Metoprolol Xl PHA 05/21/24 In Process Succinate (Toprol Xl) 10:00 Date of Service: May 21, 2024 Billing Provider: PIERO DARLING MD Common Visit Codes: [id number] INP/OBS CARE(HIGH) Coding Comment Comment Attending Attestation I saw and evaluated the patient. I reviewed the residents note and agree with findings and plan as documented in the residents note except as documented below. Patient with concern of recent pacemaker setting changes. However on telemetry and EKG, patient is in aflutter on baseline with occasional paced rhythm only. DIscussed with patient regarding her current problem is unlikely from the pacemaker. Patient will need pulm as outpatient for eval of sleep apnea SUZANNA HUERTA RESIDENT May 21, 2024 15:26 PIERO DARLING MD May 21, 2024 20:58
[2024-05-21] MEDS: RIVAROXABAN 20 MG TAB PO SCH (18:37)
[2024-05-22] VITALS (15 sets, daily range): BP systolic 90–128; BP diastolic 44–60; PULSE 63–136; RESP 16–19; TEMP 98.2–99.1; O2SAT 93–100
[2024-05-22 05:20] LABS: Chloride 106 mmol/L (98-107); Potassium 3.5 mmol/L (3.5-5.1); Sodium 142 mmol/L (136-145)
[2024-05-22 05:21] LABS: Anion Gap 9 (5-15); Carbon Dioxide 27 mmol/L (20-31)
[2024-05-22 05:22] LABS: Calcium 9.6 mg/dL (8.7-10.4)
[2024-05-22 05:26] LABS: BUN/Creatinine Ratio 18.4 (10.0-20.0); Blood Urea Nitrogen 16 mg/dL (9-23); Glucose 106 mg/dL (74-106)
[2024-05-22 08:05] LABS: Urine Bacteria None Seen /hpf (None Seen)
[2024-05-22 08:20] LABS: Urine Blood Negative /uL (Negative); Urine Clarity Clear (Clear); Urine Color Light-Yellow (Yellow); Urine Protein, UAD Negative (Negative); Urine Specific Gravity 1.009 (1.001-1.035); Urine Urobilinogen Normal (Negative); Urine WBC 1 /hpf (0 - 5)
--- NOTE | 2024-05-22 09:36 | DVHPN2 ---
Progress Note - Dictate Date Seen: May 22, 2024 Medical Necessity Reason Pt with a Central, PICC or Fol: No Subjective PT WITH COPD TOBACCO USE NOW WITH SSS S/P PPI HX OF AFIB WITH RVR HYPOTENSION vital signs Vital Sign Date Time Temp Pulse Resp B/P (MAP) Pulse Ox O2 Delivery O2 Flow Rate FiO2 05/22/24 09:00 99.1 93 18 114/48 (70) 93 99.1 05/22/24 08:11 Room Air* 0 21 medications Current Medications Medications Dose Ordered Sig/Kitty Route Start Time Stop Time Status Last Admin Dose Admin Sodium Chloride 1,000 ml @ 60 mls/hr [id number] IV 05/20/24 21:00 05/22/24 07:25 60 MLS/HR Acetaminophen 650 mg Q6HP PRN PO 05/20/24 21:00 Morphine Sulfate 2 mg Q4HPRN PRN IV 05/20/24 21:00 Nitroglycerin 0.4 mg Q5MINP PRN SL 05/20/24 21:00 Morphine Sulfate 2 mg Q30M PRN IV 05/20/24 21:00 Aspirin 81 mg DAILY PO 05/21/24 10:00 05/22/24 08:06 81 MG Baclofen 10 mg DAILY PRN PO 05/21/24 05:30 Ipratropium [place] 0.5 mg Q6HWA NEB 05/21/24 06:00 05/22/24 05:56 0.5 MG Levalbuterol HCl 0.625 mg Q6HR NEB 05/21/24 06:00 05/22/24 05:57 0.625 MG Rivaroxaban 20 mg QPM PO 05/21/24 18:00 05/21/24 18:37 20 MG Metoprolol Succinate 25 mg DAILY PO 05/21/24 10:00 Digoxin 0.125 mg DAILY PO 05/21/24 10:00 05/22/24 08:06 0.125 MG laboratory and microbiology Laboratory Tests 05/22/24 04:47 05/21/24 04:04 Test 05/22/24 04:47 Range/Units Serum Glucose 106 74-106 mg/dL Problem List COPD TOBACCO USE NOW WITH SSS S/P PPI HX OF AFIB WITH RVR HYPOTENSION Assessment/Plan CONT TOPROL DIG 0.125 PO QD DC TOBACCO USE PACEMAKER INTERROGATION SHOWS NL PPI FUNCTION BUT FREQUENT AFIB RVR START SOTALOL DC METOPROLOL MAG Plan discussed with: Patient STEVO RAMOS MD May 22, 2024 09:36
[2024-05-22] MEDS: MAGNESIUM OXIDE 400 MG TAB PO SCH (13:12)
[2024-05-22] MEDS: SOTALOL HCL 80 MG TAB PO SCH (13:12)
--- NOTE | 2024-05-22 16:29 | DVHPNRES ---
Progress Note Date Seen: May 22, 2024 Resident Creating Document: SUZANNA HUERTA RESIDENT Medical Necessity Reason Pt with a Central, PICC or Fol: No Subjective Review of Systems AUSTINBenji a 62 years old female with a PMH of HTN, HLD, AFib with RVR, sinus sick syndrome status post dual-chamber pacemaker and COPD presented to the ED with the chief complaints of palpitations, generalized weakness for past 8 days. Patient seen and examined at the bedside. Patient reported improvement since admission. Continuously monitoring and telemetry unit, patient found to have AFib with RVR, consulted Dr. Quintero, evaluated the patient and initially advised to continue metoprolol and digoxin 0.125 p.o. q.d. and ordered Biotronik interrogation, showed normal function but frequent Afib with RVR, Dr Quintero advised to stop metoprolol and start Sotalal and magnesium Patient reports: No new complaints Objective vital signs Vital Sign Date Time Temp Pulse Resp B/P (MAP) Pulse Ox O2 Delivery O2 Flow Rate FiO2 05/22/24 13:12 98 128/46 05/22/24 13:00 99.1 19 95 99.1 05/22/24 11:15 Room Air* 0 21 medications Current Medications Medications Dose Ordered Sig/Kitty Route Start Time Stop Time Status Last Admin Dose Admin Sodium Chloride 1,000 ml @ 60 mls/hr [id number] IV 05/20/24 21:00 05/22/24 07:25 60 MLS/HR Acetaminophen 650 mg Q6HP PRN PO 05/20/24 21:00 Morphine Sulfate 2 mg Q4HPRN PRN IV 05/20/24 21:00 Nitroglycerin 0.4 mg Q5MINP PRN SL 05/20/24 21:00 Morphine Sulfate 2 mg Q30M PRN IV 05/20/24 21:00 Baclofen 10 mg DAILY PRN PO 05/21/24 05:30 Ipratropium [place] 0.5 mg Q6HWA NEB 05/21/24 06:00 05/22/24 05:56 0.5 MG Levalbuterol HCl 0.625 mg Q6HR NEB 05/21/24 06:00 05/22/24 05:57 0.625 MG Rivaroxaban 20 mg QPM PO 05/21/24 18:00 05/21/24 18:37 20 MG Digoxin 0.125 mg DAILY PO 05/21/24 10:00 05/22/24 08:06 0.125 MG Sotalol HCl 80 mg Q12HR PO 05/22/24 10:00 05/22/24 13:12 80 MG Magnesium Oxide 400 mg BID PO 05/22/24 10:00 05/22/24 13:12 400 MG Examination Pt is lying on bed General Appearance: Alert, Oriented X3, Cooperative, Not in acute distress HEENT: Atraumatic, Mucous membranes moist/pink Respiratory: Clear to auscultation, Normal air movement, No added sounds Cardiovascular: irregularly irregular pulse, Normal S1, Normal S2, No murmurs Abdominal: Active bowel sounds, Soft, no distention, no tenderness Extremities: No edema, Normal pulses, No tenderness/swelling Skin: No Significant rash, except past surgical scars Neuro: Normal speech, sensorimotor deficits none Psych/Mental Status: Mental status NL, Mood NL Nurse was there as sharperone during examination laboratory and microbiology Laboratory Tests 05/22/24 04:47 05/21/24 04:04 Test 05/22/24 04:47 Range/Units Serum Glucose 106 74-106 mg/dL Labs and/or images reviewed: Labs reviewed by me, Image(s) reviewed by me Problem List/Assessment/Plan Problem List/Assessment/Plan # Atrial Fibrillation with rapid ventricular response secondary hypercoagulable state - monitor on telemetry unit -CHADSVASC 2 points HASBLED 1 POINT - pacemaker interrogation showed normal function but frequent Afib with RVR - Dr Quintero advised to stop metoprolol and start Sotalal and magnesium - continue home meds Xarelto # Generalized weakness -physical therapy evaluation for strength and mobility improvement - head CT showed with no acute abnormalities # rule out OTTO -monitor lab for now # History of Nicotine dependency, quit 1 year ago Encouraged continue with smoking cessation # Mild hypotension -monitor # Sick sinus syndrome status post pacemaker implantation -consider pacemaker interrogation -follow-up with park interpretive specialist # Insomnia -melatonin On Xarelto No Protonix needed Reconciled home meds Cardiac diet Goals of care discussed with the patient for more than 27 minutes: Full code status Case management discussed with the doctor, patient and nurse. -pacemaker interrogation showed normal function but frequent Afib with RVR. Dr Quintero advised to stop metoprolol and start Sotalal and magnesium Plan discussed with: Patient Date of Service: May 22, 2024 Billing Provider: PIERO DARLING MD Common Visit Codes: [id number] INP/OBS CARE(HIGH) Coding Comment Comment Attending Attestation I saw and evaluated the patient. I reviewed the residents note and agree with findings and plan as documented in the residents note except as documented below. SUZANNA HUERTA RESIDENT May 22, 2024 16:29 PIERO DARLING MD May 22, 2024 21:40
[2024-05-23] VITALS (9 sets, daily range): BP systolic 94–129; BP diastolic 54–82; PULSE 67–91; RESP 15–18; TEMP 97.6–98.2; O2SAT 94–100
[2024-05-23 06:20] LABS: Basophils # (auto) 0 10 ^3/uL (0-0.2); Basophils % (auto) 0.4 % (0.0-2.0); Eosinophils # (auto) 0.2 10 ^3/uL (0-0.8); Eosinophils % (auto) 2.6 % (0.0-7.0); Hematocrit 35.4 % (36.0-46.0); Hemoglobin 12.3 g/dL (12.2-16.2); Lymphocytes # (auto) 2.9 10 ^3/uL (0.4-5.4); Lymphocytes % (auto) 35.1 % (10.0-50.0); Mean Corpuscular Hemoglobin 30.1 pg (28.0-32.0); Mean Corpuscular Hgb Conc. 34.7 g/dL (32.0-36.0); Mean Corpuscular Volume 86.7 fL (80.0-100.0); Monocytes # (auto) 0.5 10 ^3/uL (0-1.3); Monocytes % (auto) 6.1 % (0.0-12.0); Neutrophils # (auto) 4.6 10 ^3/uL (1.6-8.6); Neutrophils % (auto) 55.8 % (37.0-80.0); Platelet Count (auto) 348 10^3/uL (140-450); Red Blood Cells 4.09 10^6/uL (4.0-5.20); Red Cell Distribution Width 13.9 % (11.8-14.3); White Blood Cell 8.2 10^3/uL (4.4-10.8)
--- NOTE | 2024-05-23 08:49 | DVHPN2 ---
Progress Note - Dictate Date Seen: May 23, 2024 Medical Necessity Reason Pt with a Central, PICC or Fol: No Subjective PT WITH COPD TOBACCO USE NOW WITH SSS S/P PPI HX OF AFIB WITH RVR HYPOTENSION vital signs Vital Sign Date Time Temp Pulse Resp B/P (MAP) Pulse Ox O2 Delivery O2 Flow Rate FiO2 05/23/24 06:23 72 18 99 05/23/24 06:13 Room Air 05/23/24 06:13 0 21 05/23/24 05:00 98.2 117/66 (83) 98.2 Total Intake and Output 05/22/24 05/22/24 05/23/24 15:00 23:00 07:00 Intake Total 300 ml 810 ml Output Total 200 ml Balance 100 ml 810 ml medications Current Medications Medications Dose Ordered Sig/Kitty Route Start Time Stop Time Status Last Admin Dose Admin Sodium Chloride 1,000 ml @ 60 mls/hr [id number] IV 05/20/24 21:00 05/22/24 07:25 60 MLS/HR Acetaminophen 650 mg Q6HP PRN PO 05/20/24 21:00 Morphine Sulfate 2 mg Q4HPRN PRN IV 05/20/24 21:00 Nitroglycerin 0.4 mg Q5MINP PRN SL 05/20/24 21:00 Morphine Sulfate 2 mg Q30M PRN IV 05/20/24 21:00 Baclofen 10 mg DAILY PRN PO 05/21/24 05:30 Ipratropium [place] 0.5 mg Q6HWA NEB 05/21/24 06:00 05/23/24 06:13 0.5 MG Levalbuterol HCl 0.625 mg Q6HR NEB 05/21/24 06:00 05/23/24 06:13 0.625 MG Rivaroxaban 20 mg QPM PO 05/21/24 18:00 05/22/24 18:01 20 MG Digoxin 0.125 mg DAILY PO 05/21/24 10:00 05/22/24 08:06 0.125 MG Sotalol HCl 80 mg Q12HR PO 05/22/24 10:00 05/22/24 21:01 80 MG Magnesium Oxide 400 mg BID PO 05/22/24 10:00 05/22/24 20:57 400 MG laboratory and microbiology Laboratory Tests 05/23/24 05:01 05/22/24 04:47 Test 05/22/24 04:47 Range/Units Serum Glucose 106 74-106 mg/dL Problem List COPD TOBACCO USE NOW WITH SSS S/P PPI HX OF AFIB WITH RVR HYPOTENSION Assessment/Plan CONT TOPROL DIG 0.125 PO QD DC TOBACCO USE PACEMAKER INTERROGATION SHOWS NL PPI FUNCTION BUT FREQUENT AFIB RVR START SOTALOL DC METOPROLOL MAG MAY DC HOME CONT SOTALOL WITH MAG GLYCINATE Plan discussed with: Patient STEVO RAMOS MD May 23, 2024 08:49
[2024-05-23] MEDS ORDERED: SOTA80TA20 PO (14:15)
[2024-05-23] MEDS ORDERED: DIGO1TAB48 PO (14:15)
--- NOTE | 2024-05-23 17:16 | DVHDSRES ---
Discharge Summary Date of Admission Resident Creating Document: SUZANNA HUERTA RESIDENT May 20, 2024 at 20:46 Date of Discharge: May 23, 2024 Admitting Diagnosis AFib Labs/Diagnostic Data: Laboratory Results Test 05/23/24 05:01 05/22/24 06:00 05/22/24 04:47 05/21/24 04:04 White Blood Count 8.2 10^3/uL (4.4-10.8) Red Blood Count 4.09 10^6/uL (4.0-5.20) Hemoglobin 12.3 g/dL (12.2-16.2) Hematocrit 35.4 % (36.0-46.0) Mean Corpuscular Volume 86.7 fL (80.0-100.0) Mean Corpuscular Hemoglobin 30.1 pg (28.0-32.0) Mean Corpuscular Hemoglobin Concent 34.7 g/dL (32.0-36.0) Red Cell Distribution Width 13.9 % (11.8-14.3) Platelet Count 348 10^3/uL (140-450) Mean Platelet Volume 7.5 fL (6.9-10.8) Neutrophils (%) (Auto) 55.8 % (37.0-80.0) Lymphocytes (%) (Auto) 35.1 % (10.0-50.0) Monocytes (%) (Auto) 6.1 % (0.0-12.0) Eosinophils (%) (Auto) 2.6 % (0.0-7.0) Basophils (%) (Auto) 0.4 % (0.0-2.0) Neutrophils # (Auto) 4.6 10 ^3/uL (1.6-8.6) Lymphocytes # (Auto) 2.9 10 ^3/uL (0.4-5.4) Monocytes # (Auto) 0.5 10 ^3/uL (0-1.3) Eosinophils # (Auto) 0.2 10 ^3/uL (0-0.8) Basophils # (Auto) 0 10 ^3/uL (0-0.2) Nucleated Red Blood Cells 0.0 % Urine Color Light-yellow (Yellow) Urine Clarity Clear (Clear) Urine pH 6.0 (5.0-9.0) Urine Specific [place] 1.009 (1.001-1.035) Urine Protein Negative (Negative) Urine Ketones Negative (Negative) Urine Blood Negative /uL (Negative) Urine Nitrite Negative (Negative) Urine Bilirubin Negative (Negative) Urine Urobilinogen Normal mg/dL (Negative) Urine Leukocyte Esterase Negative /uL (Negative) Urine RBC <1 /hpf (0 - 4) Urine WBC 1 /hpf (0 - 5) Urine Squamous Epithelial Cells Few /hpf (<5) Urine Bacteria None seen /hpf (None Seen) Urine Glucose Normal mg/dL (Normal) Sodium Level 142 mmol/L (136-145) Potassium Level 3.5 mmol/L (3.5-5.1) Chloride Level 106 mmol/L (98-107) Carbon Dioxide Level 27 mmol/L (20-31) Anion Gap 9 (5-15) Blood Urea Nitrogen 16 mg/dL (9-23) Creatinine 0.87 mg/dL (0.550-1.02) Glomerular Filtration Rate Calc 75 mL/min (>90) BUN/Creatinine Ratio 18.4 (10.0-20.0) Serum Glucose 106 mg/dL (74-106) Calcium Level 9.6 mg/dL (8.7-10.4) Erythrocyte Sedimentation Rate 85 mm/hr (0-20) Hemoglobin A1c 6.1 % A1C (<5.7) Magnesium Level 1.9 mg/dL (1.6-2.6) Total Bilirubin 0.6 mg/dL (0.2-1.0) Aspartate Amino Transferase (AST) 14 U/L (13-40) Alanine Aminotransferase (ALT) 12 U/L (7-40) Alkaline Phosphatase 50 U/L (46-116) C-Reactive Protein High Sensitivity 7.81 mg/dL (<1.0) Total Protein 6.3 g/dL (5.7-8.2) Albumin 3.9 g/dL (3.2-4.8) Vitamin B12 Level 556 pg/mL (211-911) Vitamin D 25-Hydroxy 65.4 ng/mL (30.0-100) Thyroid Stimulating Hormone (TSH) 3.41 uIU/mL (0.55-4.78) Test 05/21/24 03:24 05/20/24 19:17 05/20/24 16:15 Urine Opiates Screen Neg (NEGATIVE) Urine Fentanyl Screen Neg (NEGATIVE) Urine Barbiturates Screen Neg (NEGATIVE) Urine Phencyclidine Screen Neg (NEGATIVE) Urine Amphetamines Screen Neg (NEGATIVE) Urine Benzodiazepines Screen Neg (NEGATIVE) Urine Cocaine Screen Neg (NEGATIVE) Urine Cannabinoids Screen Neg (NEGATIVE) Troponin I High Sensitivity 7 ng/L (</=34) Lactic Acid Level 1.4 mmol/L (0.4-2.0) B-Type Natriuretic Peptide 132.13 pg/mL (0-100) Other Laboratory Tests 05/23/24 05:01 05/22/24 04:47 Brief Hx & Hospital Course: MAHOGANY AVILA Is a 62 years old female with a PMH of HTN, HLD, AFib with RVR, sinus sick syndrome status post dual-chamber pacemaker and COPD presented to the ED with the chief complaints of palpitations, generalized weakness for past 8 days. Patient reported on April 03, Dr. Quintero implanted pacemaker, and May 13 the mid some adjustments since then patient has been feeling all these symptoms, feels very weak, hard feels like racing, unable to eat due to lack of appetite and not interested in any thing and unable to perform daily activities mostly staying all the day on the bed due to the weakness which brought her to visit ED. The palpitations are intermittent described as an regular and rapid heartbeat, without associated chest pain dizziness or syncope. She denies fever recent weight loss, or other constitutional symptoms. Insomnia persists despite the use of melatonin. patient does report few episodes of fever but denies abdominal pain, chest pain, diaphoresis and other associated symptoms. Patient required hospital admission for further evaluation and management of AFib with RVR. Patient was continuously monitored on telemetry unit. patient has a pacemaker, interrogation showed no abnormalities in the pacemaker. Initially given 1 dose of Cardizem, started on digoxin, then discontinue Cardizem and start her on metoprolol. Consulted Dr. EMERY advised metoprolol and digoxin initially but eventually changed to sotalol and magnesium , for which patient responded well. Patient condition was improved, hemodynamically stable and in condition to be discharged home with optimal medical treatment. Patient was agreed to discharge plan. Patient was advised about healthy lifestyle habits including diet and exercise and to follow up with PCP and Cardiology after discharge General Appearance: Alert, Oriented X3, Cooperative, Not in acute distress HEENT: Atraumatic, Mucous membranes moist/pink Respiratory: Clear to auscultation, Normal air movement, No added sounds Cardiovascular: irregular pulse, Normal S1, Normal S2, No murmurs Abdominal: Active bowel sounds, Soft, no distention, no tenderness Extremities: No edema, Normal pulses, No tenderness/swelling Skin: No Significant rash, except past surgical scars Neuro: Normal speech, sensorimotor deficits none Psych/Mental Status: Mental status NL, Mood NL Nurse was there as sharperone during examination Operations or Procedures Head CT No evidence of acute intracranial abnormality. CHEST RADIOGRAPH No acute cardiopulmonary disease. Mild cardiomegaly. Condition at Discharge: Stable Final Diagnosis/Problems List # Atrial Fibrillation with rapid ventricular response secondary hypercoagulable state # Questionable OTTO likely VMN # History of Nicotine dependency, quit 1 year ago # Mild hypotension # Sick sinus syndrome status post pacemaker implantation # Insomnia Discharge Disposition: Home Discharge Instruct/Medications Diet: Consistent carbohydrate, Cardiac 2g Na,low cholest Activity: No Restrictions, As Tolerated Follow Up/Referral: PCP, CArdiology and Pulmo Medications: per EMR Discharge Statement: "Patient was advised to return to the ER or call 911 if any headaches, dizziness, shortness of breath, chest pain, abdominal pain, bleeding, fevers, or worsening of medical condition. Patient was counseled about treatment plan, medications, possible side effects, patientverbalized understanding. All questions were answered to the best of my ability. This discharge took greater then 30 minutes in planning, reviewing documentation, counseling the patient, and discussing with other team members." ASSESSMENT ASSESSMENT Assessment ATRIAL FIBRILLATION WITH RAPID VENTRICULAR RATE Date of Service: May 23, 2024 Billing Provider: PIERO DARLING MD Common Visit Codes: [id number] DISCH DAY >30min Coding Comment Comment Attending Attestation I saw and evaluated the patient. I reviewed the residents note and agree with findings and plan as documented in the residents note except as documented below. SUZANNA HUERTA RESIDENT May 23, 2024 17:16 PIERO DARLING MD May 23, 2024 21:18
== END 2024-05-23 17:27 | disposition home or self-care (01) | DRG 201 ==
LOC: ER 15:45 → TELE 20:46 → TELE-EAST 05-21 19:08
PROVIDERS: ADMIT Student in an Organized Health Care Education/Training Program; ATTEND Student in an Organized Health Care Education/Training Program
DX: I48.19 Other persistent atrial fibrillation (principal); N17.0 Acute kidney failure with tubular necrosis; D68.69 Other thrombophilia; I49.5 Sick sinus syndrome; I10 Essential (primary) hypertension; G47.00 Insomnia, unspecified; J44.9 Chronic obstructive pulmonary disease, unspecified; E78.5 Hyperlipidemia, unspecified; Z95.0 Presence of cardiac pacemaker; Z87.891 Personal history of nicotine dependence; Z90.49 Acquired absence of other specified parts of digestive tract; Z88.2 Allergy status to sulfonamides
CPT/HCPCS: 36415; 70450; 71045; 80048; 80053; 80307; 81001; 82306; 82607; 83036; 83605; 83735; 83880; 84443; 84484; 85025; 85652; 86141; 93005; 94640; 97163; 99291; G0378